=== PATIENT | female | born 1990 | race Caucasian/White ===

== ENCOUNTER 2017-03-07 09:28 | Inpatient (IN) | payer OTHER ==
[~2017-03-07] VITALS: Ht 162.6 cm; Wt 91.8 kg
[2017-03-07] VITALS (45 sets, daily range): BP systolic 111–148; BP diastolic 58–103; PULSE 69–144; TEMP 97.7–98.2
[2017-03-07 10:46] LABS: BASO % 0.3 % (0.0-2.0); EOS % 0.3 % (0-4.0); GRAN # 9.5 (1.4-6.5); GRAN % 80.8 % (42.2-75.2); HEMOGLOBIN 12.9 g/dl (12.5-16.0); LYMPH # 1.7 (1.2-3.4); LYMPH % 14.2 % (20.0-51.0); MEAN CELL VOLUME 87 fl (80.0-100.0); MEAN CORPUSCULAR HEMOGLOBIN 30 pg (27.0-31.0); MEAN CORPUSCULAR HGB CONC 34 g/dl (33.0-37.0); MEAN PLATELET VOLUME 11.7 fl (7.4-10.4); MONO # 0.5 (0.1-0.6); MONO % 4.1 % (1.7-9.3); PLATELET COUNT 263 K/mm3 (130-400); RED BLOOD COUNT 4.36 M/mm3 (4.10-5.30); REDCELL DISTRIBUTION WIDTH-CV 13.9 % (11.5-14.5); WHITE BLOOD COUNT 11.8 K/mm3 (4.8-10.8)
[2017-03-08] VITALS (10 sets, daily range): BP systolic 125–146; BP diastolic 61–91; PULSE 73–90; TEMP 97.7–98.2
[2017-03-09 08:42] VITALS: BP 135/86; PULSE 80
[2017-03-09] MEDS ORDERED: IBU600 MG PO (11:07)
[2017-03-09] MEDS ORDERED: PERCOCET 325 MG1 TA2 PO (11:07)
== END 2017-03-09 14:40 | disposition home or self-care (01) | DRG 775 ==
LOC: LDRO 09:28 → OB 09:46 → LDR 09:46 → OB 03-08 02:30
PROVIDERS: Obstetrics & Gynecology
PROC: 10E0XZZ Delivery of Products of Conception, External Approach (ICD-10-PCS; principal; 2017-03-07)
PROC: 0KQM0ZZ Repair Perineum Muscle, Open Approach (ICD-10-PCS; 2017-03-07)
DX: O48.0 Post-term pregnancy (principal); O69.81X0 Labor and delivery complicated by cord around neck, without compression, not applicable or unspecified; O70.1 Second degree perineal laceration during delivery; Z3A.40 40 weeks gestation of pregnancy; Z37.0 Single live birth
CPT/HCPCS: J2540; J2590; J7120

== ENCOUNTER → 2017-05-24 | Outpatient (REF) ==
[~2017-05-24] MED LIST: IBU600 MG PO; PERCOCET 325 MG1 TA2 PO
== END ==
LOC: WSOH 15:06
DX: Z02.1 Encounter for pre-employment examination (principal)
CPT/HCPCS: G0463

== ENCOUNTER → 2017-05-26 | Outpatient (REF) | LOC: WSOH 15:33 | DX: Z02.89 Encounter for other administrative examinations (principal) ==